=== PATIENT | male | born 1945 | race Caucasian/White ===

== ENCOUNTER 2017-11-07 06:19 | Day surgery (SDC) | payer MEDICARE ==
[2014-10-24 08:23] VITALS: BMI 26.6
[2017-11-07] MEDS ORDERED: Propofol 10 mg/ml Inj (20 ML) ONE (08:01)
--- NOTE | 2017-11-07 08:02 | CP.SDSHP ---
Same Day Surgery H & P - History Proposed Procedure: COLONSCOPY Pre-Op Diagnosis: SEE NOTES - Previous Medical/Surgical History Cardiac: Hypertension, Previous [facility] Endocrine/Metabolic: Diabetes Neuro: Backaches Misc: Other Pain: 2.Mild Pain - Allergies Allergies: Allergies aspirin Allergy (Verified 11/07/17 06:45) RASH Penicillins Allergy (Verified 11/07/17 06:45) RASH - Physical Exam General Appearance: N Vital Signs: Vital Signs 11/07/17 11/07/17 06:40 07:53 Temperature 97.6 F 97.6 F Pulse Rate 73 73 Respiratory 19 19 Rate Blood Pressure 164/91 H 164/91 H O2 Sat by Pulse 97 100 Oximetry Mental Status: Alert & Oriented x3 Neuro: WNL Heart: Other Lungs: WNL GI: WNL - {Optional Preform as Required} Breast: WNL Abdomen: Other Rectal: Other Integument: WNL : WNL Ortho: Other ENT: WNL - Impression Pt. Evaluated Today:Candidate for Anesthesia & Procedure: Yes - Date & Time Time: 08:02 Short Stay Discharge - Short Stay Discharge Admitting Diagnosis/Reason for Visit: COLON SCREENING Disposition: HOME/ ROUTINE
[2017-11-07 08:33] VITALS: TEMP 98
[2017-11-07] MEDS ORDERED: Belladonna-Phenobarbital PO ONE (08:50)
[2017-11-07 08:56] VITALS: RESP 19
[2017-11-07 09:08] VITALS: BP 153/76; PULSE 74; O2SAT 98
== END 2017-11-07 09:40 | disposition home or self-care (01) ==
LOC: C.ENDO 06:19
PROVIDERS: ATTEND Specialist
DX: Z12.11 Encounter for screening for malignant neoplasm of colon (principal); K52.9 Noninfective gastroenteritis and colitis, unspecified; K64.8 Other hemorrhoids; K57.90 Diverticulosis of intestine, part unspecified, without perforation or abscess without bleeding
CPT/HCPCS: 45380; 82948; 88305; J2001; J2704